=== PATIENT | male | born 1940 | race Caucasian/White ===

== ENCOUNTER → 2017-04-07 | Outpatient (CLI) | payer OTHER ==
[~2017-04-07] MED LIST: ASPIRIN81 M1 PO; ASPIRIN81 M2 PO; CIPRO PO; FLAGYL PO; INHALER; LEVAQUIN PO; LOTREL 10/20 MG1 CAP PO; NEXIUM PO; NICOTINE T1 PATCH .2 TOP; OMEGA PO; PHENERGAN PO; PRILOSEC PO; REGLAN PO; VITAMIN D PO
--- NOTE | ~2017-04-07 | OR ---
Unit #: [id number] #: [id number] Patient: RAQUEL ANNA [id number] [address] [place], [place] [address] [id number] O MR#: [id number] NAME: RAQUEL ANNA ROOM: Date of Procedure: 04/07/2017 Admission Date: 04/07/2017 Surgeon: Archie Waller M.D. : 1940 Attending Physician: Sanjeev Gusman Referring Physician: Sanjeev Gusman Primary Care Physician: He Red M.D. OPERATIVE REPORT JOB NOTE: VERIFY ADT. VERIFY CC PROCEDURE Cardioversion. INDICATION Atrial fibrillation. SUMMARY After the procedure was explained, questions answered, and consent signed, a transesophageal echo was done on the patient. They showed no masses. There was a small drbzj-tu-eooj shunt, there was 1 to 2+ MR and TR, and a very large left atrium. Transcutaneous DC synchronized biphasic electrical cardioversion was accomplished at 70 and 125 joules. Sinus rhythm was restored. At the time of this dictation, an ECG is pending. Amiodarone 400 mg per day was started. Labs were done before the cardioversion, that showed no significant abnormalities. IMPRESSION 1. Successful cardioversion. 2. Amiodarone started. 3. Xarelto continued. 4. Sleep apnea evaluation recommended. They have seen previously, and are recommended to this physician group. Dictated by... Betty Ordonez/michelle TD: 04/07/2017 12:09 JOB #: [id number] Unit #: [id number] #: [id number] Patient: RAQUEL ANNA OPERATIVE REPORT Page 1 of 1 X Archie Waller MD X PROCEDURE OPERATIVE NOTE
--- NOTE | ~2017-04-07 | EKG ---
PATIENT: RAQUEL ANNA UNIT #: [id number] Ventricular Rate: 74 BPM Atrial Rate: 55 BPM QRS Duration: 80 ms Q-T Interval: 378 ms QTC Calculation(Bezet): 419 ms Calculated R Palm: 49 degrees Calculated T Palm: 45 degrees Diagnosis Line: Atrial fibrillation with premature ventricular or Diagnosis Line: aberrantly conducted complexes Diagnosis Line: Abnormal ECG Diagnosis Line: No previous ECGs available Diagnosis Line: Confirmed by STANTON ONTIVEROS MD ([id number]) on 04/08/2017 Diagnosis Line: 10:35:27 AM INTERPRETING MD: RAMA MANE
--- NOTE | ~2017-04-07 | EKG ---
PATIENT: RAQUEL ANNA UNIT #: [id number] Ventricular Rate: 80 BPM Atrial Rate: 80 BPM P-R Interval: 204 ms QRS Duration: 82 ms Q-T Interval: 388 ms QTC Calculation(Bezet): 447 ms P Prescott: 82 degrees Calculated R Prescott: 49 degrees Calculated T Prescott: 43 degrees Diagnosis Line: Normal sinus rhythm Diagnosis Line: Low voltage QRS Diagnosis Line: Otherwise normal ECG Diagnosis Line: When compared with ECG of 07-APR-2017 07:24, Diagnosis Line: (unconfirmed) Diagnosis Line: Sinus rhythm has replaced Atrial fibrillation Diagnosis Line: Confirmed by STANTON ONTIVEROS MD ([id number]) on 04/08/2017 Diagnosis Line: 10:36:27 AM INTERPRETING MD: RAMA MANE
--- NOTE | ~2017-04-07 | CO ---
Unit #: [id number] #: [id number] Patient: RAQUEL TIDWELL [id number] [facility]. [place], [place] [address] [id number] O MR#: [id number] NAME: RAQUEL TIDWELL. ROOM: Age: 76 Sex: M Admission Date: 04/07/2017 : 1940 Attending Physician: Satnam Gusman M.D. Primary Care Physician: He Red M.D. Consultation Date: 04/07/2017 CONSULTATION REPORT REASON FOR CONSULTATION Sleep apnea. HISTORY OF PRESENT ILLNESS The patient is a 76-year-old gentleman who has chronic obstructive pulmonary disease, ongoing active tobacco use, hypertension, etc, and was found to have an irregular heart rhythm by Dr. Treadwell in the office. He was sent to Dr. Waller and ultimately underwent cardioversion today. He now is in sinus rhythm. There was evidence of sleep apnea and we were asked to evaluate the patient. He does snore, has witnessed apneic events, and has daytime sleepiness. Also, primarily brought up by the family, he has slowly progressive dyspnea on exertion. PAST MEDICAL HISTORY 1. Hospitalization in 2011 at [facility], where he had dyspnea on exertion. 2. Chronic obstructive pulmonary disease. 3. Emphysema. 4. Gastroesophageal reflux disease. 5. Hypertension. 6. Diverticulosis. 7. Colonic polyps. SOCIAL HISTORY He continues to smoke, although "he has cut down." FAMILY HISTORY No definite familial lung disease. ALLERGIES Codeine. CURRENT MEDICATIONS According to the chart, 1. Norvasc. 2. Prilosec. 3. Ventolin inhaler. REVIEW OF SYSTEMS Fairly unremarkable other than above, and is essentially negative. He is somewhat mildly sedated following his procedure, further inhibiting review of systems. PHYSICAL EXAMINATION Unit #: [id number] #: [id number] Patient: RAQUEL TIDWELL VITALS: Afebrile, pulse approximately 80, respiratory rate approximately 18 and unlabored. HEENT: Pupils equal, round and reactive to light. Sclerae anicteric. Head atraumatic. NECK: Supple. He has a Mallampati class 4 oropharynx with dentures in place. CHEST: Equal breath sounds. They are diminished but equal. No definite wheeze, stridor or consolidation. HEART: Regular rate and rhythm. No murmur. ABDOMEN: Soft and nontender. No hepatomegaly or rebound. EXTREMITIES: No clubbing, cyanosis or edema. No calf tenderness. SKIN: Warm and dry without rash or diaphoresis. DIAGNOSTIC STUDIES No labs or chest x-rays have been performed. He had a chest x-ray by report in 2011 which was no definite acute abnormality. The family tells me that he had a chest x-ray recently by Dr. Treadwell and it was read by the radiologist as normal, but I do not have that report or film. ASSESSMENT 1. Likely obstructive sleep apnea with exam, daytime sleepiness, snoring, etc. Suspect severe. 2. Atrial fibrillation, status post cardioversion. 3. Dyspnea on exertion. Suspect underlying chronic obstructive pulmonary disease. 4. Medical problems listed above. PLAN I have discussed with pathophysiology of sleep apnea with the patient and family. We have discussed the health risks including motor vehicle accidents as well as its association with atrial fibrillation. We have discussed diagnostic process and treatment options, including CPAP, and he agrees to proceed. We have also discussed his dyspnea and will check PFTs in the office. I suspect he would benefit from some type of controlling medications, but will hold off on prescribing that until further evaluation with PFTs. Thank you very much for allowing me to participate in the care of Mr. Tidwell. Dictated by... Servando Norwood M.D. WOL/gz TD: 04/07/2017 15:31 JOB #: [id number] CC: Betty Sanchez M.D. William O. Lacy, M.D. Unit #: [id number] #: [id number] Patient: RAQUEL TIDWELL CONSULTATION REPORT Page 1 of 1 X Servando Norwood MD CONSULTATION REPORT
[2017-04-07 08:13] LABS: INR 1.2; PROTHROMBIN TIME (PATIENT) 12.2 SECONDS (9.6-11.5)
[2017-04-07 10:41] LABS: BASOPHIL# 0.1 X10e3 (0-0.3); BASOPHIL% 0.7 % (0-2.5); EOSINOPHIL# 0.1 X10e3 (0-0.7); EOSINOPHIL% 0.8 % (0.0-7.0); HEMATOCRIT 40.5 % (38.0-50.0); HEMOGLOBIN 13.7 gm/dL (13.0-16.0); LYMPHOCYTE# 2.3 X10e3 (1.0-3.5); LYMPHOCYTE% 22.6 % (17.0-45.0); MEAN CELL VOLUME 92.5 FL (83-96); MEAN CORPUSCULAR HEMOGLOBIN 31.3 PG (28-34); MEAN CORPUSCULAR HGB CONC 33.9 g/dL (30-36); MONOCYTE% 10.1 % (3.0-12.0); NEUTROPHIL# 6.6 X10e3 (1.5-7.1); NEUTROPHIL% 65.8 % (40-75); PLATELET COUNT 202 X10e3 (140-420); RED BLOOD COUNT 4.38 X10e (3.90-5.60); RED CELL DISTRIBUTION WIDTH 13.1 % (11.0-15.5); WHITE BLOOD COUNT 10.1 X10e3 (4.0-10.5)
[2017-04-07 10:46] LABS: DIFF IND NO
[2017-04-07 11:01] LABS: CALCIUM SERUM 8.7 mg/dL (8.4-10.2); GLOM FILT RATE Estimated 71.8 mL/min (>60); MAGNESIUM 1.7 mg/dL (1.6-3.0); POTASSIUM 4.2 mmol/L (3.5-5.1)
== END | disposition home or self-care (01) ==
LOC: CECH 06:47
PROVIDERS: Internal Medicine Cardiovascular Disease
DX: R06.02 Shortness of breath (principal); I48.91 Unspecified atrial fibrillation; J44.9 Chronic obstructive pulmonary disease, unspecified; J43.9 Emphysema, unspecified; K21.9 Gastro-esophageal reflux disease without esophagitis; I10 Essential (primary) hypertension; K57.90 Diverticulosis of intestine, part unspecified, without perforation or abscess without bleeding; K63.5 Polyp of colon
CPT/HCPCS: 80048; 83735; 85025; 85610; 93005; 93312; J2250; J3010

== ENCOUNTER → 2017-04-13 | Outpatient (CLI) | payer OTHER ==
--- NOTE | ~2017-04-13 | CT55 ---
[facility] A Service of [facility] RADIOLOGY TEXT RESULTS PATIENT: RAQUEL ANNA LOCATION: [facility] : 38 UNIT #: [id number] AGE: [address]: Cedric Treadwell MD SEX: M ORDER DR: [id number] O MR#: [id number] Acc #: [id number] NAME: RAQUEL ANNA : 1940 SEX: M STUDY DATE/TIME: 04/13/2017 10:28 UNIT: [facility] ROOM: STUDY DESCRIPTION: CT Chest W Con Attending Physician: Cedric Treadwell M.D. Referring Physician: Cedric Treadwell M.D. Ordering Physician: Cedric Treadwell M.D. Primary Care Physician: Cedric Treadwell M.D. MEDICAL IMAGING REPORT This report is preliminary unless electronic signature is present. EXAM CT of the chest with contrast INDICATIONS Follow up pulmonary nodule. History of COPD. TECHNIQUE CT scan of the chest was performed following the administration of IV contrast. Coronal and sagittal reformatted images were obtained. Compared with chest x-ray from yesterday and chest CT from 05/25/2009. This CT exam was performed with one or more of the following radiation dose reduction techniques: automatic exposure control, adjustment of mA and/or kV according to patient size, and iterative reconstruction. FINDINGS Abnormal exam. There is a 2.6 cm mass in the left upper lobe highly concerning for primary lung malignancy. There is underlying emphysema. Scattered calcified granulomas in the lungs. There are no pathologically enlarged lymph nodes. No pleural effusion. Tiny hiatal hernia. Limited imaging of the upper abdomen demonstrates multiple renal cysts on the right. The adrenal glands are unremarkable. Bone windows demonstrate old rib fractures on the right. IMPRESSION 1. 2.6 cm left upper lobe mass highly concerning for primary lung malignancy. Further evaluation with PET CT is recommended. 2. Underlying emphysema Dictated by... Scott Jones M.D. [facility] A Service of [facility] RADIOLOGY TEXT RESULTS PATIENT: [facility]QU[facility] ANNA [id number] UNIT #: [id number] AGE: [address]: Cedric Treadwell MD SEX: M ORDER DR: THIS IS AN ELECTRONICALLY VERIFIED REPORT Scott Jones M.D. at 04/14/2017 7:45 AM SARTHAK/kendra TD: 04/13/2017 21:00 JOB #: [id number] MEDICAL IMAGING REPORT Page 1 of 1
[2017-04-13 10:30] LABS: POC - CREATININE 1.09 mg/dL (0.64-1.27); POC - GFR >60.0 mL/min (>60)
== END | disposition home or self-care (01) ==
LOC: SCT 10:23
PROVIDERS: Family Medicine
DX: R91.1 Solitary pulmonary nodule (principal); J44.0 Chronic obstructive pulmonary disease with (acute) lower respiratory infection; R91.8 Other nonspecific abnormal finding of lung field
CPT/HCPCS: 71260; 82565; Q9967

== ENCOUNTER → 2017-06-23 | Outpatient (CLI) | payer OTHER ==
--- NOTE | ~2017-06-23 | MR17 ---
[facility] A Service of [facility] RADIOLOGY TEXT RESULTS PATIENT: RAQUEL ANNA LOCATION: [facility] : 36 UNIT #: [id number] AGE: [address]: Juno Carlisle MD SEX: M ORDER DR: [id number] [facility] [address] [facility]. [place], [place] [address] [id number] O MR#: [id number] Acc #: [id number] NAME: RAQUEL ANNA : 1940 SEX: M STUDY DATE/TIME: 06/23/2017 11:30 UNIT: [facility] ROOM: STUDY DESCRIPTION: MR Brain WWo Contrast Attending Physician: Juno Carlisle M.D. Referring Physician: Juno Carlisle M.D. Ordering Physician: Juno Carlisle M.D. Primary Care Physician: Cedric Treadwell M.D. MRI CENTER REPORT This report is preliminary unless electronic signature is present. EXAM Brain MR with without contrast date of study 06/23/2017 PROCEDURE Brain MR with and without contrast. COMPARISON Head CT 05/25/2009 HISTORY New diagnosis lung cancer. No current symptoms, observation suspected metastatic malignancy. FINDINGS There is no MR evidence of metastatic disease. There are no areas of restricted diffusion. There is volume loss but no hydrocephalus or extraaxial fluid collection. There are chronic white matter changes fairly typical of chronic small vessel disease but again no acute abnormality is seen. Normal flow voids are seen in the cerebral vessels. Bone marrow signal is normal. Postcontrast images show no mass or abnormal enhancement. IMPRESSION Chronic small vessel change and volume loss but no acute ischemia. No evidence of metastatic disease or other acute abnormality. Dictated by... Michael Llamas M.D. THIS IS AN ELECTRONICALLY VERIFIED REPORT Michael Llamas M.D. at 06/29/2017 5:22 PM TEV/rnr [facility] A Service of [facility] RADIOLOGY TEXT RESULTS PATIENT: RAQUEL ANNA LOCATION: [facility] : 38 UNIT #: [id number] AGE: [address]: Juno Carlisle MD SEX: M ORDER DR: TD: 06/24/2017 15:04 JOB #: [id number] MRI CENTER REPORT Page 1 of 1 COPY
[2017-06-24 06:51] LABS: POC - CREATININE 1.5 mg/dL (0.64-1.27)
== END | disposition home or self-care (01) ==
LOC: CMRI 06-17 15:00
PROVIDERS: Internal Medicine Hematology & Oncology
DX: C34.12 Malignant neoplasm of upper lobe, left bronchus or lung (principal); R91.1 Solitary pulmonary nodule
CPT/HCPCS: 70553; 82565; A9577